=== PATIENT | female | born 1945 | race Caucasian/White ===

== ENCOUNTER 2022-06-13 09:57 | Inpatient (IN) | payer OTHER ==
--- OUTSIDE RECORDS SUMMARY | 2022-06-13 10:02 | XMS REPORT | Continuity of Care Document ---
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 #4 e #4 Gabapentin Gabapentin No Gabapentin Fluticasone Fluticasone No Fluticason Propionate Propionate e Propionate Vital Signs Vital Name Observation Time Observation Value Comments Source height 2022-06-01 15:00:00 69 [in_i] [facility] weight 2022-06-01 15:00:00 183 [lb_av] [facility] temperature 2022-06-01 15:00:00 98.3 [degF] [facility] bmi 2022-06-01 15:00:00 27.02 kg/m2 [facility] blood pressure 2022-06-01 15:00:00 136 mm[Hg] [facility] blood pressure 2022-06-01 15:00:00 82 mm[Hg] [facility] diastolic [facility] Systolic blood 2022-03-28 17:39:00 152 mm[Hg] [facility] Diastolic blood 2022-03-28 17:39:00 76 mm[Hg] [facility] Heart rate 2022-03-28 17:39:00 77 /min [facility] Body temperature 2022-03-28 17:39:00 35.83 Johanna [facility] Respiratory rate 2022-03-28 17:39:00 18 /min [facility] Body weight 2022-03-28 17:39:00 85.548 kg [facility] BMI 2022-03-28 17:39:00 27.85 kg/m2 [facility] Oxygen saturation in 2022-03-28 17:39:00 98 /min [facility] of Arterial blood by [facility] Pulse oximetry Branch Systolic blood 2022-03-23 16:48:00 138 mm[Hg] [facility] Diastolic blood 2022-03-23 16:48:00 65 mm[Hg] [facility] Heart rate 2022-03-23 16:48:00 79 /min [facility] Body temperature 2022-03-23 16:48:00 36.56 Johanna [facility] Respiratory rate 2022-03-23 16:48:00 16 /min [facility] Oxygen saturation in 2022-03-23 16:48:00 97 /min [facility] Arterial blood by [place] [facility] Pulse oximetry Branch Body weight 2022-03-23 13:40:00 87.2 kg tub [facility] BMI 2022-03-23 13:40:00 28.39 kg/m2 [facility] Body height 2022-03-21 16:00:00 175.3 cm [facility] Systolic blood 2020-01-01 18:10:00 110 mm[Hg] [facility] Diastolic blood 2020-01-01 18:10:00 52 mm[Hg] [facility] Heart rate 2020-01-01 18:10:00 68 /min [facility] Respiratory rate 2020-01-01 18:10:00 16 /min Univ ers[facility] of [facility] Branch Oxygen saturation in 2020-01-01 18:10:00 98 /min [facility] Arterial blood by [facility] Pulse oximetry Branch Body height 2019-12-30 19:45:00 175.3 cm [facility]i [facility] of [facility] Body weight 2019-12-30 19:45:00 66.225 kg [facility]i [facility] of [facility] BMI 2019-12-30 19:45:00 21.56 kg/m2 [facility] Branch Systolic blood 2020-01-01 18:10:00 110 mm[Hg] Univer [facility]ity of [facility] Diastolic blood 2020-01-01 18:10:00 52 mm[Hg] Unive rsity of [facility] Heart rate 2020-01-01 18:10:00 68 /min [facility] of [facility] Respiratory rate 2020-01-01 18:10:00 16 /min Univ ers[facility] of [facility] Oxygen saturation in 2020-01-01 18:10:00 98 /min [facility] Arterial blood by [facility] Pulse oximetry Branch Body height 2019-12-30 19:45:00 175.3 cm [facility] [place] [facility] [place] Body weight 2019-12-30 19:45:00 66.225 kg [facility] BMI 2019-12-30 19:45:00 21.56 kg/m2 [facility] Procedures Procedure Date / Time Performing Clinician Source Performed EXTERNAL PROVIDER 2022-04-06 05:01:00 [facility]igned, [facility] EXTERNAL PROVIDER 2022-03-28 05:01:00 Doctor Unassigned, No Univ ersity [facility] RECORDS Name Medical Branch REFERRAL OCCUPATIONAL 2022-03-28 00:00:00 Leeroy Trent [facility] [place] TH[facility] PHOSPHORUS 2022-03-21 19:49:00 Piper Bolaños [facility] MAGNESIUM 2022-03-21 19:49:00 Piper Bolaños [facility] BASIC METABOLIC PANEL 2022-03-21 19:49:00 Piper Bolaños [facility] (NA, K, CL, CO2, [facility] GLUCOSE, BUN, CREATININE, CA) CBC WITH DIFF 2022-03-21 19:49:00 Piper Bolaños [facility] LACTIC ACID WHOLE BLOOD 2022-03-21 19:49:00 Piper Bolaños [facility] MRSA / MSSA SCREEN BY 2022-03-21 19:49:00 [facility] CBC WITH DIFFERENTIAL 2020-01-01 14:15:00 José Delgado [facility] DAY SURGERY - ADC 2020-01-01 05:01:00 Doctor Maribel, Kimmie [facility] Encounters Start End Encounter Admission Attending Care Care Encounter Source Date/Time Date/Time Type Type Clinicians Facility Department ID 2022-06-01 Outpatient DIONNE, STLMLC STLC [id number] Common 14:44:03 ANDRES [id number] [facility] 2021-06-17 Outpatient Fer DELGADO [facility] ROS [id number] Univers 20:33:51 JOSÉ fermin [facility] 2022-06-02 2022-06-02 (TEL) STLC STLC [id number] Co mmon 00:00:00 00:00:00 [facility] 2022-06-01 2022-06-01 OFFICE STLMLC STLC [id number] Co mmon 00:00:00 00:00:00 VISIT NEW [facility] it PT LEVEL 3 - [facility] 2022-04-06 2022-04-06 Outpatient Fer PINEDA [facility] [id number] Univers 12:30:00 12:30:00 HILDA fermin [facility] 2022-04-06 2022-04-06 Orders Doctor HOPE [id number] Univers 00:00:00 00:00:00 Only Unassigned, DOUG 350.1.13.10 ity [facility] 4.2.7.2.686 Dennis as [phone] [address] 2022-03-28 2022-03-28 Outpatient R ROWAN [facility] [id number] Univers 12:07:48 23:59:00 JORGE jeny [facility] 2022-03-28 2022-03-28 Hospital SID Donahue [id number] Univers 12:07:48 23:59:00 Encounter Jorge LOPEZY 350.1.13.10 ity [place] [id number] Dennis as [id number] [facility] [address] 2022-03-28 2022-03-28 Ancillary Room, Agatha-Occup Therapy Tub BRAXTON 1.2.840.114 [id number] Univers 11:00:00 12:00:00 Visit Lani Khan [place].1.13.10 [place] [id number] Dennis as [phone] [facility] [address] 2022-03-28 2022-03-28 [facility] [id number] Univers 11:00:00 11:00:00 [facility] 2022-03-24 2022-03-24 Transition DELFIN Urias [id number] Univers 00:00:00 00:00:00 of Angy ROUSE 350.1.13.10 it y [address] [id number] [facility] [address] 2022-03-21 2022-03-23 [facility] [id number] Univers 13:40:00 13:15:00 JOSÉ fermin [facility] 2022-03-21 2022-03-23 SID Tinoco 1.2.840.114 [id number] Univers 13:40:00 13:15:00 Encounter José CAMACHO 350.1.13.10 [place] [address].7.2.686 Dennis as [id number] [facility] [address] 2022-03-23 2022-03-23 SID Gutierrez [id number] Univers 00:00:00 00:00:00 Piper DOUG 350.1.13.10 ity of [facility] 4.2.7.2.686 Dennis as [id number] [facility] [address] 2020-01-01 2020-01-01 [facility] 1.2.840.114 [id number] 08:47:00 13:24:00 Encounter José Shaikh 350.1.13.10 [place] 4.2.7.2.686 Surgical [id number] [place] [address] 2020-01-01 2020-01-01 [facility] 1.2.840.114 [id number] [facility] 08:47:00 13:24:00 Encounter José Shaikh 350.1.13.10 ity [place] [id number] [address] 2020-01-01 2020-01-01 Orders Doctor ARNETT 1.2.840.114 [id number] 00:00:00 00:00:00 Only Unassigned, DOUG 350.1.13.10 [facility] 4.2.7.2.686 [id number] [facility] 2020-01-01 2020-01-01 Orders Doctor HOPE 1.2.840.114 [id number] [facility] 00:00:00 00:00:00 Only Unassigned, DOUG 350.1.13.10 ity of [facility] 4.2.7.2.686 Dennis as [id number] [facility] [address] 2019-12-31 2019-12-31 Laboratory Only, [facility] 1.2.840.114 [id number] 10:09:22 10:24:22 Only Test Hawa 350.1.13.10 [place] 4.2.7.2.686 Professio [phone] nal [address] [place] [address] 2019-12-31 2019-12-31 Laboratory Only, Adc Test [facility] 1.2.840. 114 [id number] [facility] 10:09:22 10:24:22 Only Jsoé Delgaod 350.1. 13.10 ity [place] Profess[place] [id number] [address] 2019-12-31 2019-12-31 Outpatient Fer DELGADO [facility] [id number] Univers 10:15:00 10:15:00 JOSÉ fermin [facility] 2019-12-30 2019-12-30 Outpatient Fer DELGADO [facility] [id number] Univers 09:00:00 09:00:00 JOSÉ fermin [facility] Results Test Description Test Time Test Comments Results Result Comments Source Basic Metabolic Panel (NA, K, CL, CO2, GLUCOSE, BU, CR TITUSININJazzy, 2022-03-21 20:36:30 CA) Test Item Value Reference Range Interpretation Comme nts NA (test code = 6999626340) 135 mmol/L 135-145 K (test code = 1251093133) 3.8 mmol/L 3.5-5 CL (test code = 8051644566) 101 mmol/L 98-108 CO2 TOTAL (test code = 0990628705) 32 mmol/L 23-31 H AGAP (test code = 7938958548) 2-16 BUN (test code = 3636741550) 12 mg/dL 7-23 GLUCOSE (test code = 5912700925) 113 mg/dL 70-110 H CREATININE (test code = 0.98 mg/dL 0.5-1.04 8427042005) CALCIUM (test code = 4642342747) 8.0 mg/dL 8.6-10.6 L eGFR (test code = 6834327986) mL/min/1.73m2 MALINA (test code = MALINA) Association of Glomerular Filtration Rate (GFR) and Staging of Kidney Disease* + +-------- + ------+| GFR (mL/min/1.73 m2) ?| With Kidney Damage ?| ?Without Kidney Damage+ +-- + +| ?>90 ?| ?Stage one ?| ? Normal ?+ +------- + -------+| ?60-89 ?| ?Stage two ?| ? Decreased GFR ? + +-------- + ------+| ?30-59 ?| ?Stage three ?| ? Stage three ? + +-------- + ------+| ?15-29 ?| ?Stage four ? | ? Stage four ?+ +------- + -------+| ?<15 (or dialysis) ? ?| ?Stage five ? | ? Stage five ?+ +------- + -------+ *Each stage assumes the associated GFR level has been in effect for at least three months. ?Stages 1 to 5, with or without kidney disease, indicate chronic kidney disease. Notes: Determination of stages one and two (with eGFR >59mL/min/1.73 m2) requires estimation of kidney damage for at least three months as defined by structural or functional abnormalities of the kidney, manifested by either:Pathological abnormalities or Markers of kidney damage (including abnormalities in the composition of the blood or urine or abnormalities in imaging tests). Lab Interpretation (test code = Abnormal 42702-2) [facility] [id number] 20:36:30 Test Item Value Reference Range Interpretation Comments MAGNESIUM (test code = 4662860907) 1.9 mg/dL 1.7-2.4 Lab Interpretation (test code = Normal 08788-7) [facility], [id number] 20:36:30 Test Item Value Reference Range Interpretation Comments PHOSPHORUS (test code = 8763840697) 4.3 mg/dL 2.5-5 Lab Interpretation (test code = Normal 44843-5) [facility] Whole [id number] 20:14:15 Test Item Value Reference Range Interpretation Comments LACTIC ACID (test code = 0.39 mmol/L 0.5-2.2 L 5895729706) Lab Interpretation (test code = Abnormal 09913-5) [facility] WITH [id number] 20:07:25 Test Item Value Reference Range Interpretation Comments WBC (test code = See_Comment [Automated 9690-2) message] The sy stem which generated this result transmitted reference range : 4.30 - 11.10 10*3/?L. The reference range was not used to interpret this result as normal/abnormal . RBC (test code = See_Comment L [Automated 569-8) message] The sy stem which generated this result transmitted reference range : 3.93 - 5.25 10*6/?L. The reference range was not used to interpret this result as normal/abnormal . HGB (test code = 9.7 g/dL 11.6-15 L 718-7) HCT (test code = 29.2 % 35.7-45.2 L 4544-3) MCV (test code = 88.2 fL 80.6-95.5 787-2) MCH (test code = 29.3 pg 25.9-32.8 785-6) MCHC (test code = 33.2 g/dL 31.6-35.1 786-4) RDW-SD (test code = 43.0 fL 39-49.9 80070-8) RDW-CV (test code = 13.2 % 12-15.5 788-0) PLT (test code = See_Comment [Automated 777-3) message] The sy stem which generated this result transmitted reference range : 166 - 358 10*3/ ?L. The reference r meka was not used to interpret this result as normal/abnormal . MPV (test code = 8.9 fL 9.5-12.9 L 98395-0) NRBC/100 WBC (test See_Comment [Automat ed code = 8559253144) message] The system which generated this result transmitted reference range : 0.0 - 10.0 /100 WBCs. The refer ence range was not u sed to interpret th is result as normal/abnormal . NRBC x10^3 (test code See_Comment [Auto mated = 3671125660) message] The s ystem which generated this result transmitted reference range : 10*3/?L. The reference range was not used to interpret this result as normal/abnormal . GRAN MAT (NEUT) % 74.9 % (test code = 770-8) IMM GRAN % (test code 0.20 % = 9496310914) LYMPH % (test code = 14.0 % 736-9) MONO % (test code = 10.7 % 5905-5) EOS % (test code = 0.0 % 713-8) BASO % (test code = 0.2 % 706-2) GRAN MAT x10^3(ANC) 4.40 10*3/uL 1.88-7.09 (test code = 6143917791) IMM GRAN x10^3 (test 0-0.06 code = 4699027547) LYMPH x10^3 (test code 0.82 10*3/uL 1.32-3.29 L = 731-0) MONO x10^3 (test code 0.63 10*3/uL 0.33-0.92 = 742-7) EOS x10^3 (test code = 0.03-0.39 L 711-2) BASO x10^3 (test code 0.01-0.07 = 704-7) Lab Interpretation Abnormal (test code = 34804-9) [facility] WITH [id number] 15:13:00 Test Item Value Reference Range Interpretation Comments WBC (test code = See_Comment L [Automated 6690-2) message] The sy stem which generated this result transmitted reference range : 4.30 - 11.10 10*3/?L. The reference range was not used to interpret this result as normal/abnormal . RBC (test code = See_Comment L [Automated 789-8) message] The sy stem which generated this result transmitted reference range : 3.93 - 5.25 10*6/?L. The reference range was not used to interpret this result as normal/abnormal . HGB (test code = 11.9 g/dL 11.6-15 718-7) HCT (test code = 35.6 % 35.7-45.2 L 4544-3) MCV (test code = 92.7 fL 80.6-95.5 787-2) MCH (test code = 31.0 pg 25.9-32.8 785-6) MCHC (test code = 33.4 g/dL 31.6-35.1 786-4) RDW-SD (test code = 44.5 fL 39-49.9 35369-1) RDW-CV (test code = 13.1 % 12-15.5 788-0) PLT (test code = See_Comment L [Automated 777-3) message] The sy stem which generated this result transmitted reference range : 166 - 358 10*3/ ?L. The reference r meka was not used to interpret this result as normal/abnormal . MPV (test code = 10.3 fL 9.5-12.9 58958-3) NRBC/100 WBC (test See_Comment [Automat ed code = 4099718781) message] The system which generated this result transmitted reference range : 0.0 - 10.0 /100 WBCs. The refer ence range was not u sed to interpret th is result as normal/abnormal . NRBC x10^3 (test code <0.01 See_Comment [Auto mated = 6069005335) message] The s ystem which generated this result transmitted reference range : 10*3/?L. The reference range was not used to interpret this result as normal/abnormal . GRAN MAT (NEUT) % 59.5 % (test code = 770-8) IMM GRAN % (test code 0.30 % = 7551582185) LYMPH % (test code = 30.3 % 736-9) MONO % (test code = 9.3 % 5905-5) EOS % (test code = 0.0 % 713-8) BASO % (test code = 0.6 % 706-2) GRAN MAT x10^3(ANC) 1.92 10*3/uL 1.88-7.09 (test code = 4344624211) IMM GRAN x10^3 (test <0.03 0-0.06 code = 2001592973) LYMPH x10^3 (test code 0.98 10*3/uL 1.32-3.29 L = 731-0) MONO x10^3 (test code 0.30 10*3/uL 0.33-0.92 L = 742-7) EOS x10^3 (test code = <0.03 0.03-0.39 L 711-2) BASO x10^3 (test code <0.03 0.01-0.07 = 704-7) Lab Interpretation Abnormal (test code = 25473-5) [facility]"
[2022-06-13 11:04] LABS: Absolute Lymphocytes (CBC) 0.7 K/uL (0.7-4.9); Hematocrit 29.3 % (36.0-45.0); Lymphocytes % 14.5 % (15.3-44.8); MCV 84.6 fL (80-100); MPV 6.6 fL (7.6-11.3); RBC Red Blood Cell Count 3.46 M/uL (3.86-4.86)
[2022-06-13 11:22] LABS: ALT/SGPT 16 U/L (12-78); Alkaline Phosphatase 105 U/L (45-117); BUN Blood Urea Nitrogen 11 mg/dL (7-18); Bicarbonate 29 mmol/L (21-32); Bilirubin Total 0.2 mg/dL (0.2-1.0); Glomerular Filtration Rate 76 ml/min (=/>90); Glucose Level 101 mg/dL (74-106); Sodium Level 136 mmol/L (136-145)
[2022-06-13 11:23] LABS: Albumin 2.8 g/dL (3.4-5.0); NT PRO-BNP 1584 pg/mL (<450); Troponin High Sensitivity 32.4 pg/mL (<58.9)
[2022-06-13 11:24] LABS: AST/SGOT 28 U/L (15-37); Bilirubin Direct < 0.1 mg/dL (0-0.2); Magnesium 1.9 mg/dL (1.8-2.4); Potassium 3.9 mmol/L (3.5-5.1)
[2022-06-13] MEDS ORDERED: FUROSEMIDE 40 MG/4 ML VIAL ONE (11:50)
--- NOTE | 2022-06-13 12:25 | RAD REPORT ---
EXAM DESCRIPTION: RAD - Chest Single View - 06/13/2022 10:56 am CLINICAL HISTORY: SOB Chest pain. COMPARISON: No comparisons FINDINGS: Portable technique limits examination quality. Moderate opacity in the inferior right lung suspicious for pneumonia. The lungs are otherwise clear. The heart is normal in size. No displaced fractures.
--- NOTE | 2022-06-13 12:46 | ER ---
Nurse's Notes [facility] Radha Name: Shivani Hartley Age: 77 yrs Sex: Female : 1945 Arrival Date: 06/13/2022 Time: 09:59 Bed 13 Private MD: Dave Longo Diagnosis: Pneumonia, unspecified organism;CHF Exacerbation Presentation: 06/13 10:22 Chief complaint: Patient states: BETSY leg swelling for approximately 2-3 weeks, has a vg1 doctor appt to see Dr Esteves on Monday06/15/22. Stated SOB on exertion. Coronavirus screen: Vaccine status: Patient reports receiving the 2nd dose of the covid vaccine. Client denies travel out of the [place] in the last 14 days. Ebola Screen: Patient negative for fever greater than or equal to 101.5 degrees Fahrenheit, and additional compatible Ebola Virus Disease symptoms Patient denies exposure to infectious person. Initial Sepsis Screen: Does the patient meet any 2 criteria? No. Patient's initial sepsis screen is negative. Does the patient have a suspected source of infection? No. Patient's initial sepsis screen is negative. Risk Assessment: Do you want to hurt yourself or someone else? Patient reports no desire to harm self or others. Onset of symptoms was May 23, 2022. 10:22 Method Of Arrival: Wheelchair vg1 10:22 Acuity: KELLI 3 vg1 Triage Assessment: 10:24 General: Appears uncomfortable, Behavior is calm, cooperative. Pain: Complains of pain vg1 in right leg and left leg Pain currently is 7 out of 10 on a pain scale. Musculoskeletal: Swelling present in right leg and left leg. Historical: - Allergies: 10:24 PENICILLINS; vg1 - Home Meds: 10:24 gabapentin oral [Active]; vg1 - Immunization history:: Client reports receiving the 2nd dose of the Covid vaccine. - Social history:: Smoking status: Patient/guardian denies using tobacco, the patient reports quitting approximately 12 years ago. Screenin:46 Abuse screen: Denies threats or abuse. Nutritional screening: No deficits noted. tw2 Tuberculosis screening: No symptoms or risk factors identified. Fall Risk Secondary diagnosis (15 points) impaired mobility. Assessment: 10:46 Reassessment: xray at bedside at this time. tw2 11:00 Reassessment: Patient appears in no apparent distress at this time. No changes from tw2 previously documented assessment. Patient and/or family updated on plan of care and expected duration. Pain level reassessed. Patient is alert, oriented x 3, equal unlabored respirations, skin warm/dry/pink. 12:05 Reassessment: provider at bedside at this time. tw2 Vital Signs: 10:22 BP 133 / 65; Pulse 85; Resp 17; Temp 97.9; Pulse Ox 100% ; Weight 81.65 kg; Height 5 vg1 ft. 9 in. (175.26 cm); Pain 7/10; 11:00 BP 120 / 50; Pulse 67; Resp 15; Pulse Ox 100% on R/A; tw2 12:05 BP 122 / 62; Pulse 66; Resp 18; Pulse Ox 99% on R/A; tw2 13:00 BP 146 / 64; Pulse 15; Resp 16; Pulse Ox 96% on R/A; tw2 14:20 BP 127 / 63; Pulse 70; Resp 17; Pulse Ox 97% on R/A; tw2 15:32 BP 124 / 62; Pulse 79; Resp 16; Pulse Ox 95% on R/A; tw2 10:22 Body Mass Index 26.58 (81.65 kg, 175.26 cm) vg1 ED Course: 09:59 Patient arrived in ED. am2 10:00 Dave Longo MD is Private Physician. am2 10:00 Katrina Angeles [facility]NP [facility] jh7 10:00 Mason Le MD is Attending Physician. 7 10:24 Triage completed. vg1 10:24 Arm band placed on. vg1 10:30 More Covarrubias, DARIUS is Primary Nurse. tw2 10:30 Bed in low position. Call light in reach. Side rails up X2. Adult w/ patient. Cardiac tw2 monitor on. Pulse ox on. NIBP on. Warm blanket given. 10:45 Inserted saline lock: 22 gauge in right antecubital area, using aseptic technique. tw2 Blood collected. 10:58 XRAY Chest (1 view) In Process Unspecified. EDMS 12:44 Salazar Stark MD is Hospitalizing Provider. [facility] 13:31 SARS-COV-2 Antigen Rapid Sent. tw2 15:17 No provider procedures requiring assistance completed. Patient admitted, IV remains in tw2 place. Administered Medications: 11:55 Drug: Lasix (furosemide) 40 mg Route: IVP; Site: right antecubital; tw2 15:33 Follow up: Response: No adverse reaction tw2 13:32 Drug: AZITHromycin 500 mg Route: IVPB; Infused Over: 1 hrs; Site: right antecubital; tw2 15:33 Follow up: Response: No adverse reaction; IV Status: Completed infusion; IV Intake: tw2 250ml Medication: 10:59 VIS not applicable for this client. tw2 Intake: 15:33 IV: 250ml; Total: 250ml. tw2 Outcome: 12:46 Decision to Hospitalize by Provider. [facility] 15:17 Admitted to Med/surg accompanied by tech, via wheelchair, room 205, with chart, Report tw2 called to DARIUS Merrill 15:17 Condition: stable 15:17 Instructed on the need for admit. 16:05 Patient left the ED. tw2 Signatures: Dispatcher [employer] EDMore Hunt RN RN tw2 Alma Echeverria am2 Aleksandra Hale, RN RN vg1 Katrina Angeles, PROTECTION AGENT PROTECTION AGENT 7 Corrections: (The following items were deleted from the chart) 12:10 12:05 BP 122 / 62; Pulse 66bpm; Resp 10bpm; Pulse Ox 99% RA; tw2 tw2
--- NOTE | 2022-06-13 12:46 | EDPHYS ---
Physician Documentation [facility] Name: Shivani Hartley Age: 77 yrs Sex: Female : 1945 Arrival Date: 06/13/2022 Time: 09:59 Bed 13 Private MD: Dave Longo ED Physician Mason Le HPI: 06/13 10:24 This 77 yrs old Female presents to ER via Wheelchair with complaints of Leg Pain, Leg jh7 Swelling. 10:24 The patient presents with pain, that is acute, swelling. The complaints affect the jh7 right leg and left leg. Onset: The symptoms/episode began/occurred 3 week(s) ago. Associated signs and symptoms: Pertinent positives: swelling, SOB, Pertinent negatives fever, weakness. 77-year-old female presents with bilateral leg pain and swelling for the past 2 to 3 weeks. Also reports increasing shortness of breath upon exertion. States that she is scheduled to see Dr. Esteves for an initial visit this Monday. Reports a history of 4 back surgeries.. Historical: - Allergies: 10:24 PENICILLINS; vg1 - Home Meds: 10:24 gabapentin oral [Active]; vg1 - Immunization history:: Client reports receiving the 2nd dose of the Covid vaccine. - Social history:: Smoking status: Patient/guardian denies using tobacco, the patient reports quitting approximately 12 years ago. ROS: 10:24 Constitutional: Negative for fever, chills, and weight loss, Eyes: Negative for injury, jh7 pain, redness, and discharge, ENT: Negative for injury, pain, and discharge, Neck: Negative for injury, pain, and swelling, Abdomen/GI: Negative for abdominal pain, nausea, vomiting, diarrhea, and constipation, Back: Negative for injury and pain, Skin: Negative for injury, rash, and discoloration, Neuro: Negative for headache, weakness, numbness, tingling, and seizure. 10:24 Cardiovascular: Positive for orthopnea, Negative for chest pain. 10:24 Respiratory: Positive for shortness of breath, Negative for cough, wheezing. 10:24 MS/extremity: Positive for pain, swelling, tenderness. 10:24 All other systems are negative. Exam: 10:24 Constitutional: This is a well developed, well nourished patient who is awake, alert, jh7 and in no acute distress. Neck: Trachea midline, no thyromegaly or masses palpated, and no cervical lymphadenopathy. Supple, full range of motion without nuchal rigidity, or vertebral point tenderness. No Meningismus. Cardiovascular: Regular rate and rhythm with a normal S1 and S2. No gallops, murmurs, or rubs. Normal PMI, no JVD. No pulse deficits. Respiratory: Lungs have equal breath sounds bilaterally, clear to auscultation and percussion. No rales, rhonchi or wheezes noted. No increased work of breathing, no retractions or nasal flaring. Abdomen/GI: Soft, non-tender, with normal bowel sounds. No distension or tympany. No guarding or rebound. No evidence of tenderness throughout. Back: No spinal tenderness. No costovertebral tenderness. Full range of motion. Skin: Warm, dry with normal turgor. Normal color with no rashes, no lesions, and no evidence of cellulitis. Neuro: Awake and alert, GCS 15, oriented to person, place, time, and situation. Motor strength 5/5 in all extremities. Sensory grossly intact. Normal gait. 10:24 Musculoskeletal/extremity: ROM: intact in all extremities, Circulation is intact in all extremities. Sensation intact. +3, pitting edema in BLE including the ankles and feet. distal pulses intact. Vital Signs: 10:22 BP 133 / 65; Pulse 85; Resp 17; Temp 97.9; Pulse Ox 100% ; Weight 81.65 kg; Height 5 vg1 ft. 9 in. (175.26 cm); Pain 7/10; 11:00 BP 120 / 50; Pulse 67; Resp 15; Pulse Ox 100% on R/A; tw2 12:05 BP 122 / 62; Pulse 66; Resp 18; Pulse Ox 99% on R/A; tw2 13:00 BP 146 / 64; Pulse 15; Resp 16; Pulse Ox 96% on R/A; tw2 14:20 BP 127 / 63; Pulse 70; Resp 17; Pulse Ox 97% on R/A; tw2 15:32 BP 124 / 62; Pulse 79; Resp 16; Pulse Ox 95% on R/A; tw2 10:22 Body Mass Index 26.58 (81.65 kg, 175.26 cm) 1 MDM: 10:00 Patient medically screened. [facility] 13:32 Differential diagnosis: CHF exacerbation, pneumonia. Data reviewed: vital signs, nurses [facility] notes, lab test result(s), EKG, radiologic studies, plain films. Data interpreted: Pulse oximetry: is 99 %. Interpretation: normal. Counseling: I had a detailed discussion with the patient and/or guardian regarding: the historical points, exam findings, and any diagnostic results supporting the discharge/admit diagnosis, the need for further work-up and treatment in the hospital. 06/13 10:24 Order name: Basic Metabolic Panel; Complete Time: 11:28 [facility] 06/13 10:24 Order name: CBC with Diff; Complete Time: 11:05 [facility] 06/13 10:24 Order name: LFT's; Complete Time: 11:28 [facility] 06/13 10:24 Order name: Magnesium; Complete Time: 11:28 [facility] 06/13 10:24 Order name: NT PRO-BNP; Complete Time: 11:28 [facility] 06/13 10:24 Order name: PT-INR [facility] 06/13 10:24 Order name: Troponin HS; Complete Time: 11:28 [facility] 06/13 13:10 Order name: Hemoglobin A1c [facility] 06/13 13:10 Order name: Lipid Profile [facility] 06/13 13:10 Order name: SARS-COV-2 Antigen Rapid 06/13 13:17 Order name: NT PRO-BNP [facility] 06/13 13:17 Order name: Urinalysis [facility] 06/13 13:17 Order name: Basic Metabolic Panel [facility] 06/13 13:17 Order name: Basic Metabolic Panel [facility] 06/13 10:24 Order name: XRAY Chest (1 view); Complete Time: 12:41 [facility] 06/13 10:24 Order name: EKG; Complete Time: 10:24 [facility] 06/13 10:24 Order name: Cardiac monitoring; Complete Time: 11:15 [facility] 06/13 10:24 Order name: EKG - Nurse/Tech; Complete Time: 11:15 [facility] 06/13 10:24 Order name: IV Saline Lock; Complete Time: 11:16 [facility] 06/13 10:24 Order name: Labs collected and sent; Complete Time: 11:16 [facility] 06/13 10:24 Order name: O2 Per Protocol; Complete Time: 10:30 [facility] 06/13 10:24 Order name: O2 Sat Monitoring; Complete Time: 10:30 jh7 06/13 12:58 Order name: CONS Physician Consult [facility] 06/13 13:00 Order name: Heart Healthy [facility] 06/13 13:04 Order name: Echo with Doppler [facility] 06/13 13:17 Order name: CBC with Automated Diff [facility] 06/13 13:17 Order name: CBC with Automated Diff [facility] 06/13 13:19 Order name: Diet Ada 1800 Bao; Complete Time: 13:20 ld1 EC:38 Rate is 75 beats/min. Rhythm is regular. QRS [place] is Normal. [place] interval is normal at [facility] 154 msec. QRS interval is normal at 92 msec. QT interval is normal at 394 msec. No Q waves. T waves are Normal. No ST changes noted. Clinical impression: Normal ECG. Administered Medications: 11:55 Drug: Lasix (furosemide) 40 mg Route: IVP; Site: right antecubital; tw2 15:33 Follow up: Response: No adverse reaction tw2 13:32 Drug: AZITHromycin 500 mg Route: IVPB; Infused Over: 1 hrs; Site: right antecubital; tw2 15:33 Follow up: Response: No adverse reaction; IV Status: Completed infusion; IV Intake: tw2 250ml Disposition Summary: 06/13/22 12:46 Hospitalization Ordered Hospitalization Status: Inpatient Admission [facility] Provider: Salazar Stark [facility] Location: Telemetry/MedSurg (Inpatient) [facility] Condition: Stable [facility] Problem: new [facility] Symptoms: have improved [facility] Bed/Room Type: Standard [facility] Room Assignment: 205(06/13/22 14:04) Diagnosis - Pneumonia, unspecified organism [facility] - CHF Exacerbation [facility] Forms: - Medication Reconciliation Form [facility] - SBAR form [facility] Addendum: 06/16/2022 06:29 Co-signature as Attending Physician, Mason Le MD. r n Signatures: Dispatcher [employer] Sue Rodriguez RN RN dw Nieto, Roman, MD MD rn Wise, Tara, RN RN tw2 Aleksandra Hale RN RN 1 Katrina Angeles, INVESTIGATIVE RESEARCH SPECIALIST INVESTIGATIVE RESEARCH SPECIALIST [facility] Corrections: (The following items were deleted from the chart) 06/13 13:40 10:24 Musculoskeletal/extremity: ROM: intact in all extremities, Circulation is intact [facility] in all extremities. Sensation intact. +3, non pitting edema in BLE including the ankles and feet. [facility] 14:04 12:46 [facility] viri
[2022-06-13] MEDS ORDERED: ONDANSETRON 4 MG/2 ML VIAL IV PRN (13:14)
[2022-06-13] MEDS ORDERED: guaiFENesin 100 MG/5 ML UCUP PO PRN (13:15)
[2022-06-13] MEDS ORDERED: HYDRALAZINE HCL 20 MG/ML VIAL IV PRN (13:16)
--- NOTE | 2022-06-13 13:16 | P.HP ---
Certification for Inpatient Patient admitted to: Observation With expected LOS: <2 Midnights Patient will require the following post-hospital care: None Practitioner: I am a practitioner with admitting privileges, knowledge of patient current condition, hospital course, and medical plan of care. Services: Services provided to patient in accordance with Admission requirements found in Title 42 Section 412.3 of the Code of Federal Regulations <Slava Castro - Last Filed: 06/13/22 19:14> Patient History Date of Service: 06/13/22 Reason for admission: SOB, BLE edema History of Present Illness: Patient is a 77-year-old female with a past medical history significant for depression, peripheral neuropathy, constipation who presents with complaint of bilateral lower extremity edema that has been ongoing for the past 2 weeks. Patient reported that she started developing shortness of breath 1 week ago. Patient reported associated signs and symptoms of cough, chills, nausea, headache and chest tightness. Patient denies any other signs or symptoms. Symptoms are aggravated by exertion and relieved by nothing. Patient decided to present to the hospital due to worsening symptoms. - Past Medical/Surgical History -: Depression -: constipation Past Surgical History: Reviewed- Non-Contributory - Family History Family History: Reviewed- Non-Contributory - Social History Smoking Status: Former smoker Alcohol use: Yes CD- Drugs: No Caffeine use: Yes Place of Residence: Home <Slava Castro - Last Filed: 06/13/22 19:14> Date of Service: 06/14/22 <Salazar Stark - Last Filed: 06/14/22 06:17> Allergies Penicillins Allergy (Verified 06/13/22 16:21) Shortness of breath Home Medications: Amitriptyline [Elavil*] 1 tab PO BEDTIME 06/13/22 Gabapentin 1 tab PO TID 06/13/22 Lubiprostone [Amitiza] 1 tab PO DAILY 06/13/22 Montelukast Sodium [Singulair] 1 tab PO DAILY 06/13/22 Sertraline [Zoloft*] 1 tab PO BEDTIME 06/13/22 Review of Systems General: Chills Eyes: Unremarkable ENT: Unremarkable Respiratory: Cough, Shortness of Breath, Other (Chest tightness ) Cardiovascular: Unremarkable Gastrointestinal: Nausea Genitourinary: Unremarkable Musculoskeletal: Unremarkable Integumentary: Unremarkable Neurological: Other (Headache ) Lymphatics: Unremarkable <Slava Castro Jazzy - Last Filed: 06/13/22 19:14> Physical Examination - Physical Exam General: Alert, Oriented x3, Mild distress HEENT: Atraumatic, Normocephalic, PERRLA Neck: Supple, 2+ carotid pulse no bruit, JVD not distended, Other Respiratory: Diminished Cardiovascular: Regular rate/rhythm, Edema Capillary refill: <2 Seconds Gastrointestinal: Normal bowel sounds, Soft and benign Musculoskeletal: No clubbing, Swelling Integumentary: No rashes, No breakdown, No significant lesion Neurological: Normal speech, Normal tone, Normal affect Lymphatics: No axilla or inguinal lymphadenopathy - Studies Laboratory Data (last 24 hrs) 06/13/22 10:53: WBC 4.90, Hgb 9.4 L, Hct 29.3 L, Plt Count 483 H 06/13/22 10:53: Sodium 136, Potassium 3.9, BUN 11, Creatinine 0.81, Glucose 101, Magnesium 1.9, Total Bilirubin 0.2, AST 28, ALT 16, Alkaline Phosphatase 105 <MatthewShermanlois Purcell - Last Filed: 06/13/22 19:14> - Studies Laboratory Data (last 24 hrs) 06/13/22 10:53: Triglycerides 138, Cholesterol 133, HDL Cholesterol 30 L, Cholesterol/HDL Ratio 4.43 06/13/22 10:53: PT 9.6, INR 0.80 06/13/22 10:53: WBC 4.90, Hgb 9.4 L, Hct 29.3 L, Plt Count 483 H 06/13/22 10:53: Sodium 136, Potassium 3.9, BUN 11, Creatinine 0.81, Glucose 101, Magnesium 1.9, Total Bilirubin 0.2, AST 28, ALT 16, Alkaline Phosphatase 105 <Salazar Stark - Last Filed: 06/14/22 06:17> Assessment and Plan - Plan --Community-acquired pneumonia. Noted on imaging. Patient placed on antibiotics. Continue neb treatment with albuterol\Altrovent. Continue O2 therapy.. --Suspected acute systolic or diastolic CHF exacerbation. BNP elevated at 1599. Echocardiogram pending. Patient placed on diuresis with Lasix. Daily weight and strict I/O. Cardiology consulted. We will await further recommendations. --Headache. Patient has a history of headache. Continue home medications. --Peripheral neuropathy. Continue gabapentin. --Nausea. Antiemetics on board. --CKD 2. Stable. We will continue to monitor renal functions. --Anemia of chronic disease. H&H stable. We will continue to monitor hemoglobin and transfuse if less than 7.0. --Allergic rhinitis. Continue home medications. -- DVT prophylaxis with heparin subQ. Discharge Plan: Home Plan to discharge in: 48 Hours - Advance Directives Does patient have a Living Will: No Does patient have a Durable POA for Healthcare: No - Code Status/Comfort Care Code Status Assessed: Yes Code Status: Full Code Physician Review: Patient Assessed, Agree with Above Assessment and Plan Critical Care: No <Slava Castro - Last Filed: 06/13/22 19:14> Physician Review: Patient Assessed, Agree with Above Assessment and Plan <Salazar Stark - Last Filed: 06/14/22 06:17>
[2022-06-13] MEDS ORDERED: AZITHROMYCIN 500 MG INJ IVPB ONE (13:22)
[2022-06-13] MEDS ORDERED: NA CHLORIDE 0.9% 250 ML ONE (13:22)
[2022-06-13 13:53] LABS: SARS-CoV-2 Antigen Rapid Res Negative (Negative)
[2022-06-13] MEDS: IPRATROPIUM BROM 0.5MG/2.5ML NEB SCH ×2 (14:00→19:50)
[2022-06-13] MEDS: ALBUTEROL 2.5 MG/3 ML NEB SOL NEB SCH ×2 (14:00→19:50)
[2022-06-13] MEDS: CEFTRIAXONE 1,000 MG in NA CHLORIDE 0.9% 50 ML IVPB SCH (14:00)
[2022-06-13] MEDS ORDERED: ALBUTEROL 2.5 MG/3 ML NEB SOL ONE (14:08)
[2022-06-13] MEDS ORDERED: IPRATROPIUM BROM 0.5MG/2.5ML ONE (14:08)
[2022-06-13 15:16] LABS: Protime INR 0.8
[2022-06-13] MEDS: ASPIRIN EC 81 MG TAB PO SCH ×2 (15:28→16:36)
[2022-06-13] MEDS: HYDROCODONE/APAP 5/325 MG TAB PO PRN ×2 (16:35→22:28)
[2022-06-13] MEDS: FUROSEMIDE 40 MG/4 ML VIAL IV SCH (16:36)
[2022-06-13] MEDS ORDERED: HEPARIN 5000 UNIT/ML 1 ML VIAL SQ SCH (17:00)
[2022-06-13] MEDS ORDERED: METHYLPREDNISOLONE 40 MG INJ IV SCH (17:00)
[2022-06-13] MEDS: GABAPENTIN 300 MG CAP PO SCH (21:14)
[2022-06-13] MEDS: AMITRIPTYLINE 50 MG TAB PO SCH (21:14)
[2022-06-13] MEDS: SERTRALINE HCL 100 MG TAB PO SCH (21:14)
--- NOTE | 2022-06-13 22:28 | CON ---
Date of Consultation: 06/13/2022 Reason For Consultation: Shortness of breath and lower extremity edema. History Of Present Illness: This is a 77-year-old female, who presented to the emergency room with s hortness of breath on minimal exertion, significant lower extremity edema, fluids all the way up to h er knee, has been going on for the past 2 to 3 weeks and getting worse and shortness of breath is pro gressive. Denies having any active chest pain. No nausea, vomiting, or diarrhea and no other compla ints. Past Medical History: Hypertension. Medications: Refer reconciliation sheet for detailed list. Allergies: PENICILLIN. Family History: No premature coronary artery disease or cancer. Social History: Does not smoke or drink. Does not use any drugs. Review of Systems: All systems reviewed and they are negative except for mentioned in HPI. Physical Examination: Vital Signs: Reviewed. Head and Neck: Pupils are equal, reactive to light. Intact eye movements. No JVD. No cervical lym phadenopathy. Neck is supple. Thyroid is not enlarged. Lungs: She has faint crackles in both bases. No accessory muscle use or muscle retraction. Heart: Regular rate and rhythm with S3. Abdomen: Soft, nontender. Bowel sounds positive. No organomegaly. No masses or hernia. No rigidi ty or rebound. Extremities: 4+ edema all the way to the knees. Neurologic: Alert, awake, oriented x3. No acute focal deficits appreciated. Lymph Nodes: No cervical or axillary lymphadenopathy. Investigations: BUN is 11, creatinine 0.8. NT-proBNP is 1584. Troponin is 32.4 and hemoglobin 9.4. Assessment And Recommendation: 1.Acute congestive heart failure exacerbation, unknown ejection fraction. Admit. Start on Lasix 40 mg IV q.12 hours. Monitor BUN, creatinine, electrolytes, and replace potassium when needed. 2.Hypertension. After appropriate diuresis, we will introduce antihypertensive medications. 3.Pneumonia as seen on a chest x-ray. The patient is having some cough and on antibiotics. Please obtain an echocardiogram and trend 2 more sets of cardiac enzymes. SR/MODL Voice ID: [id number] Report ID: [id number]
[2022-06-14] MEDS: ALBUTEROL 2.5 MG/3 ML NEB SOL NEB SCH ×4 (02:00→19:45)
[2022-06-14] MEDS: IPRATROPIUM BROM 0.5MG/2.5ML NEB SCH ×4 (02:00→19:45)
[2022-06-14 03:53] LABS: Hematocrit 28.6 % (36.0-45.0); Lymphocytes % 19.4 % (15.3-44.8); MCV 83.4 fL (80-100); MPV 6.8 fL (7.6-11.3); RBC Red Blood Cell Count 3.43 M/uL (3.86-4.86)
[2022-06-14 04:07] LABS: Potassium 3.4 mmol/L (3.5-5.1)
[2022-06-14] MEDS ORDERED: POTASSIUM CL SA 10 MEQ TAB PO ONE (06:00)
--- NOTE | 2022-06-14 08:11 | RAD REPORT ---
EXAM DESCRIPTION: RAD - Chest Pa And Lat (2 Views) - 06/14/2022 6:41 am CLINICAL HISTORY: PNA?, cough, shortness of breath COMPARISON: Portable June 13 TECHNIQUE: Frontal and lateral views of the chest were obtained. FINDINGS: The lungs are normal volume. Airspace opacification in the posterior right lung base is a gain identified. This persistent infiltrate is similar to the June 13 study. Patchy left base opac ification is present as well. No cavitation or mass identifiable. Heart size is normal and central vasculature is within normal limits. No pleural effusion or pneumo thorax seen. No acute bony finding noted. No aortic abnormality. IMPRESSION: Right base pneumonia similar to prior day imaging. Smaller left base infiltrate also stable.
[2022-06-14] MEDS: LUBIPROSTONE 8 MCG PO SCH (08:13)
[2022-06-14] MEDS: HYDROCODONE/APAP 5/325 MG TAB PO PRN ×3 (08:15→21:50)
[2022-06-14] MEDS: GABAPENTIN 300 MG CAP PO SCH ×3 (08:19→21:46)
[2022-06-14] MEDS: HEPARIN 5000 UNIT/ML 1 ML VIAL SQ SCH ×2 (08:19→22:27)
[2022-06-14] MEDS: CEFTRIAXONE 1,000 MG in NA CHLORIDE 0.9% 50 ML IVPB SCH (08:19)
[2022-06-14] MEDS: ASPIRIN EC 81 MG TAB PO SCH (08:19)
[2022-06-14] MEDS: FUROSEMIDE 40 MG/4 ML VIAL IV SCH ×2 (08:19→17:42)
[2022-06-14] MEDS: MONTELUKAST 10 MG TAB PO SCH (08:20)
[2022-06-14] MEDS: AZITHROMYCIN IV 500 MG in NA CHLORIDE 0.9% 250 ML IVPB SCH (08:20)
--- NOTE | 2022-06-14 08:56 | RAD REPORT ---
EXAM DESCRIPTION: US - Extrem Venous W [place] - 06/14/2022 8:46 am CLINICAL HISTORY: DVT? COMPARISON: None. TECHNIQUE: Real-time sonographic evaluation of the bilateral lower extremity common femoral, superfi cial femoral, popliteal and posterior tibial veins was performed. FINDINGS: Normal compressibility, flow augmentation, phasic flow and spontaneous flow are identified in the left and right lower extremity common femoral, superficial femoral, popliteal and posterior t ibial veins. No intraluminal filling defects seen. IMPRESSION: No DVT in either lower extremity.
--- NOTE | 2022-06-14 10:05 | RAD REPORT ---
EXAM DESCRIPTION: CT - Chest For Pe Angio - 06/14/2022 9:06 am CLINICAL HISTORY: PEchest pain, shortness of breath COMPARISON: Chest Pa And Lat (2 Views) dated 06/14/2022 TECHNIQUE: Dynamically enhanced 3 mm thick images of the chest were obtained during administration o f approximately 150mL Isovue 370 IV contrast. Coronal and oblique MIP reconstruction images were gene rated and reviewed. Exam utilizes a protocol to evaluate the pulmonary arterial tree. All CT scans are performed using dose optimization technique as appropriate and may include automated exposure control or mA/KV adjustment according to patient size. FINDINGS: No pulmonary emboli are identified. The aorta as imaged shows no acute or suspicious finding. No pericardial thickening or effusion. Airspace opacification and ground-glass opacities are present throughout most of the right lower lobe . Superior segment is spared. Scattered air bronchograms are present. Minimal airspace opacities are present in the right middle lobe. Interstitial and scattered alveolar opacities are present in the me dial base left lower lobe. Bilateral upper lobes are spared any acute process. There is biapical pleu ral and parenchymal scarring changes present. No pleural effusion or pleural thickening. No mediastinal or hilar suspicious masses. No chest wall masses or abnormal axillary lymphadenopathy. IMPRESSION: No pulmonary emboli identified. Moderate-sized right lower lobe pneumonia with small pneumonias in the left lung base and in the righ t middle lobe.
--- NOTE | 2022-06-14 13:55 | EKG ---
Test Date: 2022-06-14 Test Time: 09:51:57 Adjunct Political Science Instructor: LAURA MEASUREMENT RESULTS: Intervals: Rate: 83 VA: 146 QRSD: 90 QT: 378 QTc: 444 [place]: P: 68 VA: 146 QRS: 68 T: 69 INTERPRETIVE STATEMENTS: Normal sinus rhythm Normal ECG Compared to ECG 06/13/2022 10:38:32 No significant changes Electronically Signed On 06-14-22 13:54:49 CDT by David Esteves
--- NOTE | 2022-06-14 14:00 | EKG ---
Test Date: 2022-06-13 Test Time: 10:38:32 Perforator Typist: MEASUREMENT RESULTS: Intervals: Rate: 75 IA: 154 QRSD: 92 QT: 394 QTc: 439 [place]: P: 64 IA: 154 QRS: 68 T: 67 INTERPRETIVE STATEMENTS: Normal sinus rhythm Normal ECG No previous ECG available for comparison Electronically Signed On 06-14-22 13:59:34 CDT by David Esteves
--- NOTE | 2022-06-14 14:19 | ECHO ---
HEIGHT: 5 ft 9 in WEIGHT: 177 lb 12.8 oz DATE OF STUDY: 06/14/[address]: Slava Castro 2-DIMENSIONAL: YES M.MODE: YES DOPPLER: YES COLOR FLOW: YES TDS: NO PORTABLE: NO DEFINITY: NO BUBBLE STUDY: NO DIAGNOSIS: CONGESTIVE HEART FAILURE CARDIAC HISTORY: CATHERIZATION: YES SURGERY: NO PROSTHETIC VALVE: NO PACEMAKER: NO MEASUREMENTS (cm) DIASTOLIC (NORMALS) SYSTOLIC (NORMALS) IVSd 0.9 (0.6-1.2) LA Diam 3.2 (1.9-4.0) LVEF 58% LVIDd 4.4 (3.5-5.7) LVIDs 3.0 (2.0-3.5) %FS 30% LVPWd 1.1 (0.6-1.2) Ao Diam 2.6 (2.0-3.7) 2 DIMENSIONAL ASSESSMENT: RIGHT ATRIUM: NORMAL LEFT ATRIUM: NORMAL RIGHT VENTRICLE: NORMAL LEFT VENTRICLE: NORMAL TRICUSPID VALVE: MILD TRICUSPID REGURGITATION MITRAL VALVE: NORMAL PULMONIC VALVE: NORMAL AORTIC VALVE: NORMAL PERICARDIAL EFFUSION: NONE AORTIC ROOT: NORMAL LEFT VENTRICULAR WALL MOTION: NORMAL. DOPPLER/COLOR FLOW: MILD TRICUSPID REGURGITATION. COMMENTS: NORMAL LEFT VENTRICULAR EJECTION FRACTION 55-60%. NORMAL WALL MOTION. NORMAL DIASTOLIC FUNCTION. MILD TRICUSPID REGURGITATION. TECHNOLOGIST: DAGMAR RODARTE
--- NOTE | 2022-06-14 15:40 | P.PN ---
Subjective Date of Service: 06/14/22 Chief Complaint: SOB, BLE edema No acute events overnight. This morning, she reports that she developed significant left-sided chest pain at rest. She describes the pain as dull/aching and without radiation. The pain is intermittent and has been occurring without obvious inciting or alleviating factors. She grades it a 10/10 in severity. Review of Systems 10-point ROS is otherwise unremarkable Respiratory: Cough, Shortness of Breath Cardiovascular: Chest Pain Physical Examination - Vital Signs Temperature: 97.2 F Blood Pressure: 116/57 Pulse: 71 Respirations: 18 Pulse Ox (%): 96 - Physical Exam General: Alert, In no apparent distress, Oriented x3 HEENT: Atraumatic, PERRLA, Mucous membr. moist/pink, EOMI, Sclerae nonicteric Neck: Supple, JVD not distended Respiratory: Diminished, Rhonchi/gurgles Cardiovascular: Regular rate/rhythm, Normal S1 S2, No gallops, No rubs, No murmurs, Edema Gastrointestinal: Normal bowel sounds, Soft and benign, Non-distended, No tenderness, No rebound, No guarding Musculoskeletal: No clubbing Integumentary: No rashes Neurological: Normal speech, Cranial nerves 3-12 intact, Normal affect Assessment And Plan - Plan # Community Acquired Right Lower Lobe Pneumonia - Evaluation thus far: - D-Dimer = 6355 - Procalcitonin = pending - Chest x-ray (06/13) = "Moderate opacity in the inferior right lung suspicious for pneumonia. The lungs are otherwise clear. The heart is normal in size. No displaced fractures." - Ordered 2-view chest x-ray - Does not meet sepsis criteria at this time - Ceftriaxone + Azithromycin # Acute Decompensated Congestive Heart Failure with Preserved Ejection Fraction - Consult Cardiology and spoke with Dr. Esteves - recommendations appreciated - Transthoracic echocardiogram = "normal left ventricular ejection fraction 55- 60%. normal wall motion. normal diastolic function. mild tricuspid regurgitation." - Diuresis with IV furosemide for today - Daily weights - Strict I/O - Cardiac diet, 1.5 L fluid restriction, 2 g Na restriction # Chest Pain, atypical # Elevated D-Dimer - Evaluation thus far: - EKG: No obvious ST segment changes, trend - Serial troponin: 32.4 -> 49.1, trend - Transthoracic echocardiogram = "normal left ventricular ejection fraction 55-60%. normal wall motion. normal diastolic function. mild tricuspid regurgitation." - Chest x-ray (06/13) = "Moderate opacity in the inferior right lung suspicious for pneumonia. The lungs are otherwise clear. The heart is normal in size. No displaced fractures." - D-Dimer = 6355 - Management plan: - Consult Cardiology and Dr. Esteves - recommendations appreciated - Ordered CT chest angiogram and bilateral lower extremity Doppler given elevated d-dimer # Peripheral Neuropathy - Continue gabapentin and amitryptiline # Depressive Disorder - Continue sertraline Salazar Stark M.D.
[2022-06-14] MEDS: SERTRALINE HCL 100 MG TAB PO SCH (21:46)
[2022-06-14] MEDS: AMITRIPTYLINE 50 MG TAB PO SCH (21:46)
[2022-06-15] MEDS: ALBUTEROL 2.5 MG/3 ML NEB SOL NEB SCH ×4 (02:00→20:00)
[2022-06-15] MEDS: IPRATROPIUM BROM 0.5MG/2.5ML NEB SCH ×4 (02:00→20:00)
--- NOTE | 2022-06-15 07:30 | RAD REPORT ---
EXAM DESCRIPTION: RAD - Chest Single View - 06/15/2022 6:24 am CLINICAL HISTORY: eval pneumonia COMPARISON: Chest Pa And Lat (2 Views) dated 06/14/2022; Chest Single View dated 06/13/2022; Chest F or Pe Angio dated 06/14/2022 FINDINGS: Lines: None. Lungs: Mild improved aeration of the right lung base. Again noted are opacities in the right mid lung , right lung base, and left lung base. Pleural: No significant pleural effusions or pneumothorax. Cardiac: The heart size is within normal limits. Mediastinum: Within normal limits. Bones: No acute fractures. Left shoulder arthroplasty. ACDF the cervical spine. Other: None IMPRESSION: Bilateral airspace disease likely representing pneumonia with marginal improvement at th e right lung base.
[2022-06-15] MEDS: LUBIPROSTONE 8 MCG PO SCH (09:00)
[2022-06-15] MEDS: MONTELUKAST 10 MG TAB PO SCH (09:08)
[2022-06-15] MEDS: GABAPENTIN 300 MG CAP PO SCH ×3 (09:08→20:46)
[2022-06-15] MEDS: HEPARIN 5000 UNIT/ML 1 ML VIAL SQ SCH ×2 (09:08→20:49)
[2022-06-15] MEDS: FUROSEMIDE 40 MG/4 ML VIAL IV SCH (09:08)
[2022-06-15] MEDS: ASPIRIN EC 81 MG TAB PO SCH (09:08)
[2022-06-15] MEDS: HYDROCODONE/APAP 5/325 MG TAB PO PRN ×2 (09:08→17:33)
[2022-06-15] MEDS: CEFTRIAXONE 1,000 MG in NA CHLORIDE 0.9% 50 ML IVPB SCH (09:09)
[2022-06-15] MEDS: AZITHROMYCIN IV 500 MG in NA CHLORIDE 0.9% 250 ML IVPB SCH (09:09)
--- NOTE | 2022-06-15 11:59 | P.DS ---
Admission Date: 06/13/22 Discharge Date: 06/15/22 Disposition: ROUTINE DISCHARGE Discharge Condition: GOOD Reason for Admission: SOB, BLE edema Vital Signs/Physical Exam: Temp Pulse Resp BP Pulse Ox 98.2 F 69 16 134/98 H 95 06/15/22 08:00 06/15/22 08:00 06/15/22 08:00 06/15/22 08:00 06/15/22 08:00 Laboratory Data at Discharge: WBC 5.00 K/uL (4.3-10.9) 06/14/22 03:36 Hgb 9.4 g/dL (12.0-15.0) L 06/14/22 03:36 Hct 28.6 % (36.0-45.0) L 06/14/22 03:36 Plt Count 420 K/uL (152-406) H 06/14/22 03:36 PT 9.6 SECONDS (9.2-12.8) 06/13/22 10:53 INR 0.80 06/13/22 10:53 Sodium 136 mmol/L (136-145) 06/14/22 03:36 Potassium 4.1 mmol/L (3.5-5.1) D 06/14/22 12:29 BUN 11 mg/dL (7-18) 06/14/22 03:36 Creatinine 0.94 mg/dL (0.55-1.3) 06/14/22 03:36 Glucose 118 mg/dL (74-106) H 06/14/22 03:36 Magnesium 1.9 mg/dL (1.8-2.4) 06/13/22 10:53 Total Bilirubin 0.2 mg/dL (0.2-1.0) 06/13/22 10:53 AST 28 U/L (15-37) 06/13/22 10:53 ALT 16 U/L (12-78) 06/13/22 10:53 Alkaline Phosphatase 105 U/L (45-117) 06/13/22 10:53 Triglycerides 138 mg/dL (<150) 06/13/22 10:53 Cholesterol 133 mg/dL (<200) 06/13/22 10:53 HDL Cholesterol 30 mg/dL (40-60) L 06/13/22 10:53 Cholesterol/HDL Ratio 4.43 06/13/22 10:53 Home Medications: Amitriptyline [Elavil*] 1 tab PO BEDTIME 06/13/22 Gabapentin 1 tab PO TID 06/13/22 Lubiprostone [Amitiza] 1 tab PO DAILY 06/13/22 Montelukast Sodium [Singulair] 1 tab PO DAILY 06/13/22 Sertraline [Zoloft*] 1 tab PO BEDTIME 06/13/22 Cefdinir [Cefdinir*] 300 mg PO BID 7 Days #14 cap 06/15/22 Doxycycline Hyclate 100 mg PO BID 7 Days #14 tab 06/15/22 Furosemide [Lasix] 40 mg PO DAILY #30 tab 06/15/22 New Medications: Cefdinir [Cefdinir*] 300 mg PO BID 7 Days #14 cap Doxycycline Hyclate 100 mg PO BID 7 Days #14 tab Furosemide [Lasix] 40 mg PO DAILY #30 tab Physician Discharge Instructions: 1. Please schedule a follow-up appointment with your PCP (Dr. Longo) in 3-5 days - He will need to schedule a repeat chest x-ray in about 4 weeks to make sure your pneumonia has healed 2. Please schedule a follow-up appointment with Cardiology (Dr. Esteves) in 5-7 days Diet: Regular Activity: Ad jennifer Followup: Dave Longo MD [Primary Care Provider] - David Esteves MD [ACTIVE - CAN ADMIT] -
--- NOTE | 2022-06-15 13:10 | RAD REPORT ---
EXAM DESCRIPTION: CT - Head Brain Wo Cont - 06/15/2022 12:57 pm CLINICAL HISTORY: dizziness COMPARISON: No comparisons TECHNIQUE: Axial 5 mm thick images of the head were obtained without IV contrast. All CT scans are performed using dose optimization technique as appropriate and may include automated exposure control or mA/KV adjustment according to patient size. FINDINGS: No intracranial hemorrhage, mass, edema or shift of mid-line structures. No acute infarcti on changes seen. No cortical edema or sulcal effacement. Patient has a mild bifrontal atrophy pattern . Ventricles are in proportion to any volume loss. Arterial and physiologic calcifications are presen t. Mastoid air cells and visualized portions of the paranasal sinuses are clear. No acute bony findings. No globe or orbital content abnormality. IMPRESSION: Negative noncontrast CT head examination for acute finding. Mild bifrontal lobe atrophy.
--- NOTE | 2022-06-15 13:25 | P.PN ---
Subjective Date of Service: 06/15/22 Chief Complaint: SOB, BLE edema No acute events overnight. She stated that her chest pain and shortness of breath have completely resolved. Initial plan was for discharge; however, she became dizzy when standing up. Discharge canceled. CT head and orthostatic vital signs requested. Discussed with Dr. Esteves, who recommended holding further doses of furosemide as he feels that she may have over-diuresed. I called [facility] pharmacy and cancelled the furosemide prescription. Review of Systems 10-point ROS is otherwise unremarkable Neurological: Other (dizziness) Physical Examination - Vital Signs Temperature: 97.0 F Blood Pressure: 128/64 Pulse: 61 Respirations: 18 Pulse Ox (%): 94 Assessment And Plan - Plan - Physical Exam General: Alert, In no apparent distress, Oriented x3 HEENT: Atraumatic, PERRLA, Mucous membr. moist/pink, EOMI, Sclerae nonicteric Neck: Supple, JVD not distended Respiratory: Diminished, Rhonchi/gurgles Cardiovascular: Regular rate/rhythm, Normal S1 S2, No gallops, No rubs, No murmurs, Edema Gastrointestinal: Normal bowel sounds, Soft and benign, Non-distended, No tenderness, No rebound, No guarding Musculoskeletal: No clubbing Integumentary: No rashes Neurological: Normal speech, Cranial nerves 3-12 intact, Normal affect # Community Acquired Right Lower Lobe Pneumonia - Evaluation thus far: - D-Dimer = 6355 - Procalcitonin = pending - Chest x-ray (06/13) = "Moderate opacity in the inferior right lung suspicious for pneumonia. The lungs are otherwise clear. The heart is normal in size. No displaced fractures." - Chest x-ray (06/15) = "Bilateral airspace disease likely representing pneumonia with marginal improvement at the right lung base." - Does not meet sepsis criteria at this time - Ceftriaxone + Azithromycin # Acute Decompensated Congestive Heart Failure with Preserved Ejection Fraction - Consult Cardiology and spoke with Dr. Esteves - recommendations appreciated - Transthoracic echocardiogram = "normal left ventricular ejection fraction 55- 60%. normal wall motion. normal diastolic function. mild tricuspid regurgitation." - Hold furosemide per Dr. Esteves - Daily weights - Strict I/O - Cardiac diet, 1.5 L fluid restriction, 2 g Na restriction # Concern for Orthostasis due to Overdiuresis - Hold furosemide per Dr. Esteves - Ordered CT head and orthostatic vital signs # Chest Pain, atypical # Elevated D-Dimer - Evaluation thus far: - EKG: No obvious ST segment changes, trend - Serial troponin: 32.4 -> 49.1 -> 26.8 - Transthoracic echocardiogram = "normal left ventricular ejection fraction 55-60%. normal wall motion. normal diastolic function. mild tricuspid regurgitation." - Chest x-ray (06/13) = "Moderate opacity in the inferior right lung suspicious for pneumonia. The lungs are otherwise clear. The heart is normal in size. No displaced fractures." - D-Dimer = 6355 - Management plan: - Consult Cardiology and Dr. Esteves - recommendations appreciated - Bilateral Lower Extremity Doppler = " No DVT in either lower extremity." - CT chest angiogram = "No pulmonary emboli identified. Moderate-sized right lower lobe pneumonia with small pneumonias in the left lung base and in the right middle lobe." # Peripheral Neuropathy - Continue gabapentin and amitryptiline # Depressive Disorder - Continue sertraline Salazar Stark M.D. Discharge Plan: Home Plan to discharge in: 24 Hours
--- NOTE | 2022-06-15 15:44 | PN ---
Date of Progress Note: 06/15/2022 Subjective: Seen by bedside. She said she stood up this morning and felt dizzy and fell on the floo r, and she has been feeling dizzy. No chest pain, shortness of breath, orthopnea, cough, nausea, vom iting, diarrhea. All other systems reviewed and they were negative. Physical Examination: Vital Signs: Reviewed. Head and Neck: Pupils are equal, reactive to light. Intact eye movements. No JVD. No cervical lym phadenopathy. Neck is supple. Thyroid is not enlarged. Lungs: Clear to auscultation bilaterally. No rhonchi, wheezing, or crackles. No accessory muscle u se. Heart: Regular rate and rhythm. No extra sounds. Abdomen: Soft, nontender. Bowel sounds positive. No organomegaly. No masses or hernia. No rigidi ty or rebound. Extremities: No edema, clubbing, or cyanosis. Intact pulses. Skin: No rash. Neurologic: Alert, awake, oriented x3. No acute focal deficits appreciated. Investigations: Labs were reviewed. Assessment And Recommendations: 1.Acute on chronic diastolic heart failure exacerbation. She is on the dry side today as she had sy ncopal episode once she stood up, to hold the Lasix and reassess tomorrow and maybe start low-dose 20 mg by mouth for outpatient purposes and I will follow her up as an outpatient. We will obtain stres s test at that time. 2.Syncope due to hypotension. She is slightly dry. Hold IV Lasix and reassess tomorrow. 3.Hypertension. Blood pressure is controlled. SR/MODL Voice ID: [id number] Report ID: [id number]
--- NOTE | 2022-06-15 15:51 | PN ---
Date of Progress Note: 06/14/2022 Subjective: Seen by bedside. Doing clinically better. Still has some swelling, but with improvemen t. Review of Systems: No chest pain. Has some shortness of breath with movement. No nausea, vomiting, diarrhea. No abdom inal pain. No dysuria, polyuria, or urinary urgency. No skin rash, headache. All other systems rev iewed and they were negative. Physical Examination: Vital Signs: Reviewed. Head and Neck: Pupils are equal, reactive to light. Intact eye movements. No JVD. No cervical lym phadenopathy. Neck is supple. Thyroid is not enlarged. Lungs: Has rhonchi bilaterally. No accessory muscle use or muscle retraction. Heart: Regular rate and rhythm. No extra sounds. Abdomen: Soft, nontender. Bowel sounds positive. No organomegaly. No masses or hernia. No rigidi ty or rebound. Extremities: No clubbing or cyanosis. Intact pulses. Skin: No rash. Neurologic: Alert, awake, oriented x3. No acute focal deficits appreciated. Lymph Nodes: No cervical or axillary lymphadenopathy. Investigations: BUN is 11, creatinine 0.94, and troponin has been negative. Assessment And Recommendations: 1.Acute on chronic diastolic heart failure. She has normal ejection fraction. Continue diuresis wi th 1 more day and switch to oral afterwards. Monitor BUN, creatinine, and electrolytes, and to hold if her systolic blood pressure less than 110. 2.Pneumonia, on antibiotics. Continue current management. 3.Hypertension. Blood pressure is controlled. SR/MODL Voice ID: [id number] Report ID: [id number]
[2022-06-15] MEDS ORDERED: Ringers Lactate 1,000 ML IV ONE (16:37)
[2022-06-15] MEDS: AMITRIPTYLINE 50 MG TAB PO SCH (20:46)
[2022-06-15] MEDS: SERTRALINE HCL 100 MG TAB PO SCH (20:46)
[2022-06-15] MEDS: Ringers Lactate 1,000 ML IV SCH (23:20)
[2022-06-16] MEDS: IPRATROPIUM BROM 0.5MG/2.5ML NEB SCH ×3 (02:00→14:00)
[2022-06-16] MEDS: ALBUTEROL 2.5 MG/3 ML NEB SOL NEB SCH ×3 (02:00→14:00)
[2022-06-16] MEDS: HEPARIN 5000 UNIT/ML 1 ML VIAL SQ SCH ×2 (09:00→21:02)
[2022-06-16] MEDS: LUBIPROSTONE 8 MCG PO SCH (09:00)
[2022-06-16] MEDS: CEFTRIAXONE 1,000 MG in NA CHLORIDE 0.9% 50 ML IVPB SCH (09:00)
[2022-06-16] MEDS: MONTELUKAST 10 MG TAB PO SCH (09:00)
[2022-06-16] MEDS: AZITHROMYCIN IV 500 MG in NA CHLORIDE 0.9% 250 ML IVPB SCH (09:00)
[2022-06-16] MEDS: ASPIRIN EC 81 MG TAB PO SCH (09:00)
[2022-06-16] MEDS: GABAPENTIN 300 MG CAP PO SCH ×3 (09:00→20:30)
[2022-06-16 13:48] VITALS: BMI 25.5
[2022-06-16] MEDS: Ringers Lactate 1,000 ML IV SCH (15:09)
[2022-06-16] MEDS ORDERED: ALBUTEROL 2.5 MG/3 ML NEB SOL NEB PRN (15:22)
[2022-06-16] MEDS ORDERED: IPRATROPIUM BROM 0.5MG/2.5ML NEB PRN (15:23)
[2022-06-16] MEDS: AMITRIPTYLINE 50 MG TAB PO SCH (20:30)
[2022-06-16] MEDS: SERTRALINE HCL 100 MG TAB PO SCH (20:30)
--- NOTE | 2022-06-16 20:50 | P.PN ---
Subjective Date of Service: 06/16/22 Chief Complaint: SOB, BLE edema She remains orthostatic this morning. She is currently receiving IV fluids at 75 mL/hr. I believe that she may have been mis-diagnosed. I suspect her bilateral lower extremity edema is secondary to venous stasis rather than congestive heart failure. I explained this to her in detail. I have advised that we continue IV fluids, place compression stockings on her lower extremities, and monitor her orthostatic vitals. She was in agreement with this plan. Review of Systems 10-point ROS is otherwise unremarkable Neurological: Other (orthostatic/dizziness) Physical Examination - Vital Signs Temperature: 97.3 F Blood Pressure: 143/63 Pulse: 75 Respirations: 16 Pulse Ox (%): 96 Assessment And Plan - Plan - Physical Exam General: Alert, In no apparent distress, Oriented x3 HEENT: Atraumatic, PERRLA, Mucous membr. moist/pink, EOMI, Sclerae nonicteric Neck: Supple, JVD not distended Respiratory: Diminished, Rhonchi/gurgles Cardiovascular: Regular rate/rhythm, Normal S1 S2, No gallops, No rubs, No murmurs, Edema Gastrointestinal: Normal bowel sounds, Soft and benign, Non-distended, No tenderness, No rebound, No guarding Musculoskeletal: No clubbing Integumentary: No rashes Neurological: Normal speech, Cranial nerves 3-12 intact, Normal affect # Community Acquired Right Lower Lobe Pneumonia - Evaluation thus far: - D-Dimer = 6355 - Procalcitonin = 0.13 - Chest x-ray (06/13) = "Moderate opacity in the inferior right lung suspicious for pneumonia. The lungs are otherwise clear. The heart is normal in size. No displaced fractures." - Chest x-ray (06/15) = "Bilateral airspace disease likely representing pneumonia with marginal improvement at the right lung base." - Does not meet sepsis criteria at this time - Ceftriaxone + Azithromycin # Orthostatic Hypotension # Bilateral Lower Extremity Edema suspect due to Chronic Venous Stasis - Transthoracic echocardiogram = "normal left ventricular ejection fraction 55- 60%. normal wall motion. normal diastolic function. mild tricuspid regurgitation." - Continue IV fluids, monitor orthostatic vital signs - Discontinue furosemide - I have also called her pharmacy and discontinued the outpatient prescription sent yesterday - Compression stockings - Advised her to elevate her lower extremities when possible # Chest Pain, atypical # Elevated D-Dimer - Evaluation thus far: - EKG: No obvious ST segment changes, trend - Serial troponin: 32.4 -> 49.1 -> 26.8 - Transthoracic echocardiogram = "normal left ventricular ejection fraction 55-60%. normal wall motion. normal diastolic function. mild tricuspid regurgitation." - Chest x-ray (06/13) = "Moderate opacity in the inferior right lung suspicious for pneumonia. The lungs are otherwise clear. The heart is normal in size. No displaced fractures." - D-Dimer = 6355 - Management plan: - Consult Cardiology and Dr. Esteves - recommendations appreciated - Bilateral Lower Extremity Doppler = " No DVT in either lower extremity." - CT chest angiogram = "No pulmonary emboli identified. Moderate-sized right lower lobe pneumonia with small pneumonias in the left lung base and in the right middle lobe." # Peripheral Neuropathy - Continue gabapentin and amitryptiline # Depressive Disorder - Continue sertraline Salazar Stark M.D.
[2022-06-17] MEDS: Ringers Lactate 1,000 ML IV SCH ×2 (02:38→07:54)
[2022-06-17] MEDS ORDERED: CEFTRIAXONE 1000 MG/VIAL ONE (07:41)
[2022-06-17] MEDS: ASPIRIN EC 81 MG TAB PO SCH (07:56)
[2022-06-17] MEDS: MONTELUKAST 10 MG TAB PO SCH (07:56)
[2022-06-17] MEDS: GABAPENTIN 300 MG CAP PO SCH (07:56)
[2022-06-17] MEDS: HEPARIN 5000 UNIT/ML 1 ML VIAL SQ SCH (07:57)
[2022-06-17] MEDS: CEFTRIAXONE 1,000 MG in NA CHLORIDE 0.9% 50 ML IVPB SCH (07:57)
[2022-06-17] MEDS ORDERED: NA CHLORIDE 0.9% 50 ML ONE (08:04)
[2022-06-17] MEDS: AZITHROMYCIN IV 500 MG in NA CHLORIDE 0.9% 250 ML IVPB SCH (08:06)
[2022-06-17] MEDS: LUBIPROSTONE 8 MCG PO SCH (08:06)
[2022-06-17 08:27] VITALS: BP 136/64; TEMP 97.6
--- NOTE | 2022-06-17 08:51 | P.DS ---
Admission Date: 06/15/22 Discharge Date: 06/17/22 Disposition: ROUTINE DISCHARGE Discharge Condition: GOOD Reason for Admission: SOB, BLE edema Consultations: 1. Cardiology Hospital Course: DIAGNOSES: # Community Acquired Right Lower Lobe Pneumonia # Orthostatic Hypotension # Bilateral Lower Extremity Edema suspect due to Chronic Venous Stasis # Chest Pain, atypical # Elevated D-Dimer # Peripheral Neuropathy # Depressive Disorder HOSPITAL COURSE: Ms. Shivani Hartley is a pleasant 77 year old female with a past medical history significant for peripheral neuropathy and depressive disorder who was admitted to the [facility] on 06/13/2022 for shortness of breath and bilateral lower extremity edema. She was admitted to the Medicine service. Upon further evaluation, she was found to have a d-dimer of 6,355. Her chest x-ray revealed, "bilateral airspace disease likely representing pneumonia with marginal improvement at the right lung base." For the d-dimer, a bilateral lower extremity was obtained, which revealed, "no DVT in either lower extremity." A CT chest angiogram was obtained which revealed, "no pulmonary emboli identified. Moderate-sized right lower lobe pneumonia with small pneumonias in the left lung base and in the right middle lobe." She was treated with IV antibiotics, and had improvement in her symptoms. In addition to the treatment for pneumonia, she was initially thought to have acute decompensated congestive heart failure with preserved ejection fraction. Her EKG was without STEMI criteria. Her troponin trend was flat. Her transthoracic echocardiogram revealed, "normal left ventricular ejection fraction 55-60%. normal wall motion. normal diastolic function. mild tricuspid regurgitation." She was treated with IV furosemide, and had improvement in her bilateral lower extremity swelling. However, she had significant orthostatic hypotension. The congestive heart failure diagnosis was was reversed and she was treated with IV fluids. Over the remainder of her hospitalization, her vital signs improved and she was able to ambulate around the nursing station, without any symptoms. Prior to discharge, I had called the outpatient pharmacy and discontinued her home furosemide prescription. On 06/17/2022, she was seen on morning rounds and deemed medically stable for discharge. She was discharged with instructions to schedule follow-up appointments with her PCP (Dr. Longo) and with Cardiology (Dr. Esteves). She was provided prescriptions for cefdinir and doxycycline. She was given the opportunity to ask questions and reported no further questions. Furthermore, all questions were answered to the best of my ability. A copy of this discharge summary will be sent to the above providers to facilitate continuity of care. Today, I personally spent 20 minutes on her case, of which greater than 50% of the time was spent in patient education, counseling, and coordination of care as described above. - Physical Exam General: Alert, In no apparent distress, Oriented x3 HEENT: Atraumatic, PERRLA, Mucous membr. moist/pink, EOMI, Sclerae nonicteric Neck: Supple, JVD not distended Respiratory: Diminished, but clear to auscultation bilaterally Cardiovascular: Regular rate/rhythm, Normal S1 S2, No gallops, No rubs, No murmurs, Edema Gastrointestinal: Normal bowel sounds, Soft and benign, Non-distended, No tenderness, No rebound, No guarding Musculoskeletal: No clubbing Integumentary: No rashes Neurological: Normal speech, Cranial nerves 3-12 intact, Normal affect Vital Signs/Physical Exam: Temp Pulse Resp BP Pulse Ox 97.6 F 72 18 136/64 95 06/17/22 08:00 06/17/22 08:00 06/17/22 08:00 06/17/22 08:00 06/17/22 08:00 Laboratory Data at Discharge: WBC 5.00 K/uL (4.3-10.9) 06/14/22 03:36 Hgb 9.4 g/dL (12.0-15.0) L 06/14/22 03:36 Hct 28.6 % (36.0-45.0) L 06/14/22 03:36 Plt Count 420 K/uL (152-406) H 06/14/22 03:36 PT 9.6 SECONDS (9.2-12.8) 06/13/22 10:53 INR 0.80 06/13/22 10:53 Sodium 136 mmol/L (136-145) 06/14/22 03:36 Potassium 4.1 mmol/L (3.5-5.1) D 06/14/22 12:29 BUN 11 mg/dL (7-18) 06/14/22 03:36 Creatinine 0.94 mg/dL (0.55-1.3) 06/14/22 03:36 Glucose 118 mg/dL (74-106) H 06/14/22 03:36 Magnesium 1.9 mg/dL (1.8-2.4) 06/13/22 10:53 Total Bilirubin 0.2 mg/dL (0.2-1.0) 06/13/22 10:53 AST 28 U/L (15-37) 06/13/22 10:53 ALT 16 U/L (12-78) 06/13/22 10:53 Alkaline Phosphatase 105 U/L (45-117) 06/13/22 10:53 Triglycerides 138 mg/dL (<150) 06/13/22 10:53 Cholesterol 133 mg/dL (<200) 06/13/22 10:53 HDL Cholesterol 30 mg/dL (40-60) L 06/13/22 10:53 Cholesterol/HDL Ratio 4.43 06/13/22 10:53 Home Medications: RX: Amitriptyline [Elavil*] 1 tab PO BEDTIME 06/13/22 RX: Gabapentin 1 tab PO TID 06/13/22 RX: Lubiprostone [Amitiza] 1 tab PO DAILY 06/13/22 RX: Montelukast Sodium [Singulair] 1 tab PO DAILY 06/13/22 RX: Sertraline [Zoloft*] 1 tab PO BEDTIME 06/13/22 Cefdinir [Cefdinir*] 300 mg PO BID 7 Days #14 cap 06/15/22 RX: Doxycycline Hyclate 100 mg PO BID 7 Days #14 tab 06/15/22 New Medications: Cefdinir [Cefdinir*] 300 mg PO BID 7 Days #14 cap RX: Doxycycline Hyclate 100 mg PO BID 7 Days #14 tab Physician Discharge Instructions: PROBLEM: SOB/BLE edema Pneumonia GOAL: Clear understanding of disease process INSTRUCTIONS: 1. Please schedule a follow-up appointment with your PCP (Dr. Longo) in 3-5 days - He will need to schedule a repeat chest x-ray in about 4 weeks to make sure your pneumonia has healed 2. Please schedule a follow-up appointment with Cardiology (Dr. Esteves) in 5-7 days Call [phone] with any questions regarding hospital stay Call 911 or return to the nearest ER if your symptoms return or worsen Diet: Regular Activity: As tolerated Diet: Regular Activity: Ad jennifer Followup: Dave Longo MD [Primary Care Provider] - David Esteves MD [ACTIVE - CAN ADMIT] - Time spent managing pt's care (in minutes): 20
[2022-06-17 09:23] VITALS: O2SAT 96
--- NOTE | 2022-06-18 01:38 | PN ---
Date of Progress Note: 06/17/2022 Subjective: Seen by bedside, doing well. No chest pain, shortness of breath, orthopnea, or cough. No nausea, vomiting, or diarrhea. All other systems are reviewed and are negative. Physical Examination: Vital Signs: Reviewed. Head And Neck: Pupils are equal and reactive to light. Intact eye movements. No JVD. No cervical lymphadenopathy. Neck is supple. Thyroid is not enlarged. Lungs: Clear to auscultation bilaterally. No rhonchi, wheezing, or crackles. No accessory muscle u se. Heart: Regular rate and rhythm. No extra sounds. Abdomen: Soft, nontender. Bowel sounds positive. No organomegaly. No masses or hernia. No rigidi ty or rebound. Extremities: No edema, clubbing, or cyanosis. Intact pulses. Skin: No rashes. Neurologic: Alert, awake, oriented x3. No acute focal deficits appreciated. Investigations: Labs were reviewed. Assessment And Recommendation: 1.Gljzc-an-cbixdit diastolic heart failure. She is euvolemic. Continue current management. 2.Pneumonia, on antibiotics. 3.Hypertension. Blood pressure is well controlled. Cardiology will sign off from the case and once patient is released, to follow up in the clinic in 2- 4 weeks. SR/BOSSMAN Voice ID: [id number] Report ID: [id number]
== END 2022-06-17 10:47 | disposition home or self-care (01) | DRG 193 ==
LOC: ER 09:57 → INTOOBSV 12:55 → ERHOLD 12:55 → 2ND 15:14 → OBSVTOIN 06-15 14:18
PROVIDERS: ADMIT Internal Medicine; ATTEND Internal Medicine
DX: J18.9 Pneumonia, unspecified organism (principal); I50.33 Acute on chronic diastolic (congestive) heart failure; I13.0 Hypertensive heart and chronic kidney disease with heart failure and stage 1 through stage 4 chronic kidney disease, or unspecified chronic kidney disease; N18.2 Chronic kidney disease, stage 2 (mild); D63.1 Anemia in chronic kidney disease; D63.8 Anemia in other chronic diseases classified elsewhere; I95.1 Orthostatic hypotension; G62.9 Polyneuropathy, unspecified; I87.8 Other specified disorders of veins; I07.1 Rheumatic tricuspid insufficiency; J30.9 Allergic rhinitis, unspecified; F32.A Depression, unspecified; R11.0 Nausea; R51.9 Headache, unspecified; R07.89 Other chest pain; R79.89 Other specified abnormal findings of blood chemistry; Z88.0 Allergy status to penicillin; Z87.891 Personal history of nicotine dependence; Z79.899 Other long term (current) drug therapy; Z20.822 Contact with and (suspected) exposure to COVID-19
CPT/HCPCS: 36415; 70450; 71045; 71046; 71275; 80048; 80061; 80076; 83036; 83735; 83880; 84132; 84145; 84484; 85025; 85379; 85610; 87811; 93005; 93306; 93970; 94640; 96365; 96366; 96375; 99285; G0378; J0456; J1644; J1940; J2920; J7050; J7120; Q9967